=== PATIENT | male | born 1985 | race Two or more races ===

== ENCOUNTER 2024-06-26 09:56 | Emergency (ER) | payer MEDICAID ==
[~2024-06-26] VITALS: Ht 167.6 cm; Wt 73.0 kg
[2024-06-26 10:20] LABS: BASOPHILS % (AUTO) 0.2 % (0.0-2.0); EOSINOPHILS # (AUTO) 0.1 K/uL (0.0-0.7); EOSINOPHILS % (AUTO) 1.8 % (0.0-6.0); HEMATOCRIT 44 % (39-51); HEMOGLOBIN 15.1 g/dL (13.5-17.5); LYMPHOCYTES # (AUTO) 1.5 K/uL (0.8-4.8); LYMPHOCYTES % (AUTO) 22.3 % (20.0-44.0); MEAN CORPUSCULAR HEMOGLOBIN 31 PG (26.0-33.0); MEAN CORPUSCULAR HGB CONC 35 g/dl (31.0-36.0); MEAN CORPUSCULAR VOLUME 90 fL (80-96); MONOCYTES # (AUTO) 0.6 K/uL (0.1-1.30); MONOCYTES % (AUTO) 8.7 % (2.0-12.0); NEUTROPHILS # (AUTO) 4.5 K/uL (1.8-8.9); PLATELET COUNT (AUTO) 214 K/uL (150-450); RED BLOOD CELL COUNT(AUTO) 4.88 MIL/uL (4.5-6.0); RED CELL DISTRIBUTION WIDTH 12.8 % (11.5-15.0); WHITE BLOOD COUNT (AUTO) 6.7 K/uL (4.3-11.0)
[2024-06-26 10:33] LABS: ALBUMIN 3.8 g/dL (3.4-5.0); BILIRUBIN,DIRECT 0.3 mg/dL (0.0-0.2); BILIRUBIN,TOTAL 1.7 mg/dL (0.2-1.0); CREATININE 0.8 mg/dL (0.6-1.3); POTASSIUM 3.5 mmol/L (3.5-5.1); TOTAL PROTEIN, SERUM 7.3 g/dL (6.4-8.2)
[2024-06-26 10:37] LABS: CALCIUM, SERUM 8.1 mg/dL (8.5-10.1)
[2024-06-26] MEDS ORDERED: LOPE2CAP40 PO (10:42)
[2024-06-26] MEDS: IV NS 0.9% 1,000 ML BAG IV ONE (10:45)
[2024-06-26 11:32] VITALS: BP 131/85; TEMP 98.8; O2SAT 98
== END 2024-06-26 11:38 | disposition home or self-care (01) ==
LOC: ER 10:06
DX: R19.7 Diarrhea, unspecified (principal); R11.2 Nausea with vomiting, unspecified
CPT/HCPCS: 99283; 96360; 85025; 80048; 83690; 80076; 36415; J7030

== ENCOUNTER 2024-08-10 13:16 | Emergency (ER) | payer SELFPAY ==
[~2024-08-10] VITALS: Ht 167.6 cm; Wt 75.3 kg
[~2024-08-10 13:16] MED LIST: LOPE2CAP40 PO
[2024-08-10 13:23] VITALS: TEMP 102.8
[2024-08-10] MEDS ORDERED: IBUPROFEN 400 MG TABLET ONE (13:33)
[2024-08-10] MEDS: ACETAMINOPHEN ES 500 MG TABLET PO ONE (13:35)
[2024-08-10] MEDS: IBUPROFEN 400 MG TABLET PO ONE (13:35)
[2024-08-10] MEDS ORDERED: ACET-2605 PO (13:36)
[2024-08-10] MEDS ORDERED: IBUP-1490 PO (13:36)
[2024-08-10] MEDS ORDERED: ACETAMINOPHEN ES 500 MG TABLET ONE (13:37)
[2024-08-10 13:55] VITALS: BP 120/68; O2SAT 99
== END 2024-08-10 13:56 | disposition home or self-care (01) ==
LOC: ER 13:36
DX: B34.9 Viral infection, unspecified (principal)